=== PATIENT | male | born 1965 | race Asian ===

== ENCOUNTER 2022-10-30 13:42 | Emergency (ER) | payer OTHER | END 2022-10-30 15:58 | disposition home or self-care (01) | LOC: ED 13:42 | DX: J18.9 Pneumonia, unspecified organism (principal); Z20.822 Contact with and (suspected) exposure to COVID-19 | CPT/HCPCS: 87502; 87635; 99283; U0003 ==

== ENCOUNTER 2023-02-05 08:41 | Emergency (ER) | payer OTHER ==
[~2023-02-05] VITALS: Ht 170.2 cm; Wt 72.6 kg
== END 2023-02-05 09:55 | disposition home or self-care (01) ==
LOC: ED 08:41
DX: J02.0 Streptococcal pharyngitis (principal); Z20.822 Contact with and (suspected) exposure to COVID-19
CPT/HCPCS: 87502; 87635; 87651; 99283; U0001